=== PATIENT | female | born 1985 | race Caucasian/White ===

== ENCOUNTER 2020-05-31 14:38 | Emergency (ER) | payer OTHER, BC ==
[2020-05-31] MEDS ORDERED: Ondansetron 4 MG/2 ML SDV IVPUSH ONE (14:41)
[2020-05-31] MEDS ORDERED: Morphine 4 MG/ML Syringe IVPUSH ONE (14:41)
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
[2020-05-31] MEDS ORDERED: HYDROmorphone 1 MG/ML Syringe IVPUSH ONE (15:25)
--- NOTE | 2020-05-31 15:38 | CR ---
Indication: Pain Technique: AP and lateral views of a lower extremity osseous structure were submitted. These are submitted as right tibia and fibula, however several images are labeled as left knee due to technologist error. Comparison: None Findings: There is a comminuted fracture of the proximal tibia with extension to the tibial plateau is bilaterally. The distal femur is grossly intact. There is associated soft tissue swelling. There is partial visualization of internal fixation ming within the distal fibula. Impression: Images presented as right tibia and fibula demonstrate a comminuted fracture of the proximal tibia with involvement of the bilateral tibial plateaus. Dictated by Darron Miranda MD @ May 31 2020 3:30PM Signed by Dr. Darron Miranda @ May 31 2020 3:37PM
[2020-05-31] MEDS ORDERED: fentaNYL 100 MCG/2 ML SDV ONE (15:42)
[2020-05-31] MEDS ORDERED: fentaNYL 50 MCG/ML SDV IVPUSH ONE (15:42)
--- NOTE | 2020-05-31 16:18 | CR ---
Indication: Fracture Technique: AP and lateral views Comparison: Two views right tibia and fibula 05/31/2020 Findings: There is comminuted fracture of the proximal tibia with extension to the bilateral medial greater than lateral tibial plateaus. There is approximately 7 millimeters of impaction of the medial tibial plateau. There is associated soft tissue swelling. Impression: Comminuted fracture of the tibial plateau medial greater than lateral is appreciated with likely 7 millimeters of impaction of the medial aspect of the medial plateau. Dictated by Darron Miranda MD @ May 31 2020 4:14PM Signed by Dr. Darron Miranda @ May 31 2020 4:16PM
--- NOTE | 2020-05-31 16:31 | CT ---
HISTORY: Right knee pain. TECHNIQUE: CT right knee without contrast. COMPARISON: Radiographs same day. FINDINGS: Acute comminuted fracture of the proximal tibia extending from the proximal articular surfaces into the proximal shaft. Fracture involves the medial and lateral tibial plateaus and the tibial eminence. Medial tibial plateau articular surface is mildly comminuted. Posterior medial tibial plateau fragment is depressed 4-5 mm and is displaced in 6 mm laterally relative to the anterior aspect of the medial tibial plateau (axial series 201, image 407). Posterior aspect of the lateral tibial plateau articular surface is comminuted with multiple small fragments. Small lateral tibial plateau fragments are mildly depressed and displaced. Defect in the posterior lateral tibial plateau articular surface measures up to 18 mm wide (axial series 201, image 398). Majority of the lateral tibial plateau articular surface is intact. Tibial eminence is comminuted. Anterior tibial eminence fragment is displaced 5-6 mm superiorly. Posterior cortex of the proximal tibial metaphyseal region is comminuted with several mildly displaced and rotated fragments. Multi-directional fracture extension through the tibial tubercle. Thin mildly displaced acute avulsion fracture fragments from the outer rim of the lateral tibial plateau. No femur, patella, or proximal fibula fracture. Proximal tibiofibular joint is maintained. No significant arthrosis of the knee. Moderate size knee joint lipohemarthrosis. Scattered foci of intra-articular gas. Muscle mass is maintained. No popliteal cyst. IMPRESSION: 1. Acute comminuted fracture of the proximal tibia involving the medial and lateral tibial plateaus and tibial eminence with mild displacement and depression of major fracture fragments. 2. Knee joint lipohemarthrosis. Please note that all CT scans at this facility use dose modulation, iterative reconstruction, and/or weight-based dosing when appropriate to reduce radiation dose to as low as reasonably achievable. Dictated by Mehul Cook MD @ May 31 2020 4:36PM Signed by Dr. Mehul Cook @ May 31 2020 4:48PM
[2020-05-31] MEDS ORDERED: Acetaminophen/oxyCODONE 325-5 MG Tab PO ONE (16:44)
== END 2020-05-31 17:26 | disposition home or self-care (01) ==
LOC: MW.ED 14:38
DX: S82.141A Displaced bicondylar fracture of right tibia, initial encounter for closed fracture (principal); V28.4XXA Motorcycle driver injured in noncollision transport accident in traffic accident, initial encounter
CPT/HCPCS: 73560; 73590; 73700; 96374; 96375; 99284; A9270; J1170; J2270; J2405; J3010; 99283

== ENCOUNTER 2023-10-12 10:33 | Day surgery (SDC) | payer BC ==
[~2023-10-12 10:33] MED LIST: Albuterol 0.083% 2.5 MG/3 ML Neb Soln NEB PRN; HYDROmorphone 1 MG/ML Syringe IVPUSH PRN; Metoclopramide 10 MG/2 ML SDV IVPUSH PRN; Morphine 2 MG/ML SYRINGE IVPUSH PRN; Naloxone 0.4 MG/ML SDV IVPUSH PRN; Ondansetron 4 MG/2 ML SDV IVPUSH PRN; droPERidol 5 MG/2 ML SDV IVPUSH PRN; fentaNYL 50 MCG/ML SDV IVPUSH PRN
[2023-10-12] MEDS ORDERED: Ropivacaine 0.5% 5 MG/ML 30 ML SDV ONE (11:41)
[2023-10-12] MEDS: Lactated Ringers 1,000 ML IV SCH (11:42)
[2023-10-12] MEDS ORDERED: Lidocaine 2% 5 ML SDV ONE (11:46)
[2023-10-12] MEDS ORDERED: fentaNYL 100 MCG/2 ML SDV ONE (11:46)
[2023-10-12] MEDS ORDERED: Ketorolac 30 MG/ML SDV ONE (11:46)
[2023-10-12] MEDS ORDERED: Dexamethasone 4 MG/ML 5 ML MDV ONE (11:46)
[2023-10-12] MEDS ORDERED: Ondansetron 4 MG/2 ML SDV ONE (11:46)
[2023-10-12] MEDS ORDERED: Propofol 200 MG/20 ML SDV ONE (11:46)
[2023-10-12] MEDS ORDERED: Rocuronium Bromide 50 MG/5 ML Syringe ONE (11:46)
[2023-10-12] MEDS ORDERED: Sugammadex Sodium 200 MG/2 ML VIAL IV ONE (11:46)
[2023-10-12] MEDS ORDERED: ceFAZolin 2 GM in Sodium Chloride 0.9% 50 ML IV ONE (12:00)
[2023-10-12] MEDS ORDERED: Phenylephrine HCl 0.5 MG/5 ML AMP ONE (12:19)
[2023-10-12] MEDS ORDERED: ceFAZolin 2 GM Vial ONE (12:22)
[2023-10-12] MEDS ORDERED: Phenylephrine 1% 10 MG/ML SDV ONE (13:03)
[2023-10-12] MEDS ORDERED: Morphine 10 MG/ML SDV ONE (14:32)
== END 2023-10-12 15:55 | disposition home or self-care (01) ==
LOC: MW.SDS 10:33
PROVIDERS: ATTEND Orthopaedic Surgery
DX: S43.015D Anterior dislocation of left humerus, subsequent encounter (principal); S42.292A Other displaced fracture of upper end of left humerus, initial encounter for closed fracture; X58.XXXA Exposure to other specified factors, initial encounter; S82.143A Displaced bicondylar fracture of unspecified tibia, initial encounter for closed fracture; Z79.899 Other long term (current) drug therapy
CPT/HCPCS: 23616; 81025; J0690; J1100; J1885; J2270; J2371; J2405; J2704; J2795; J3010; J7120; 01630; 64415; C1713; J3490

== ENCOUNTER 2024-06-24 11:46 | Emergency (ER) | payer SELFPAY ==
[2024-06-24] MEDS ORDERED: Tranexamic Acid in NACL,ISO-OS 1,000 MG/100 ML Bag IV ONE (12:21)
[2024-06-24] MEDS ORDERED: Naloxone 0.4 MG/ML SDV IVPUSH PRN (12:22)
[2024-06-24 12:23] LABS: BASOPHILS ABSOLUTE AUTO 0.03 K/uL (0.00-0.20); BASOPHILS PERCENT AUTO 0.4 % (0.0-1.0); EOSINOPHILS ABSOLUTE AUTO 0.07 K/uL (0.00-0.45); EOSINOPHILS PERCENT AUTO 0.9 % (0.0-6.0); HEMATOCRIT 32.6 % (37.0-47.0); IMMATURE GRAN ABSOLUTE AUTO 0.01 K/uL (0.00-0.05); IMMATURE GRAN PERCENT AUTO 0.1 % (0.0-0.4); LYMPHOCYTES ABSOLUTE AUTO 2.06 K/uL (1.00-4.80); LYMPHOCYTES PERCENT AUTO 25.6 % (24.0-44.0); MEAN CORPUSCULAR HEMOGLOBIN 31.6 pg (28.0-32.0); MEAN CORPUSCULAR HGB CONC 33.7 g/dL (32.0-36.0); MEAN CORPUSCULAR VOLUME 93.7 fL (83.0-99.0); MEAN PLATELET VOLUME 9.4 fL (9.4-12.3); MONOCYTES ABSOLUTE AUTO 0.61 K/uL (0.00-0.80); MONOCYTES PERCENT AUTO 7.6 % (0.0-8.0); NEUTROPHILS ABSOLUTE AUTO 5.27 K/uL (1.80-7.70); NEUTROPHILS PERCENT AUTO 65.4 % (41.0-71.0); PLATELET COUNT,PLT 388 K/uL (150-400); RED BLOOD CELL COUNT 3.48 M/uL (4.10-5.30); WHITE BLOOD CELL COUNT,WBC 8.05 K/uL (3.9-11.3)
[2024-06-24 12:31] LABS: INR 1.1 (0.86-1.11); PTT,PARTIAL THROMBOPLSTIN TIME 29.3 SEC (23.9-30.7)
[2024-06-24] MEDS: Sodium Chloride 0.9% 1,000 ML IV ONE (12:34)
[2024-06-24] MEDS: Morphine 4 MG/ML Syringe IVPUSH ONE (12:34)
[2024-06-24] MEDS: Tranexamic Acid in NACL,ISO-OS 1,000 MG in Premix Bag 1 BAG IV ONE (12:44)
[2024-06-24 12:51] LABS: A/G RATIO 0.9 (0.9-1.6); ALBUMIN 3.5 g/dL (3.4-5.0); BILIRUBIN TOTAL 0.7 mg/dL (0.2-1.0); CALCIUM 8.9 mg/dL (8.5-10.1); CARBON DIOXIDE,CO2 27.3 mmol/L (21.0-32.0); CREATININE 0.9 mg/dL (0.6-1.0); EST CRCL DRUG DOSING (CG) 84.66 mL/min; PROTEIN TOTAL,TP 7.2 g/dL (6.4-8.2); TSH ULTRASENSITIVE 1.27 uIU/mL (0.36-3.74)
[2024-06-24 13:06] LABS: CANDIDA DNA PROBE NEGATIVE (NEGATIVE); GARDNERELLA DNA PROBE NEGATIVE (NEGATIVE); TRICHOMONAS DNA PROBE NEGATIVE (NEGATIVE)
[2024-06-24 13:45] LABS: C. TRACHOMATIS BY PCR NOT DETECTED; N. GONORRHOEAE BY PCR NOT DETECTED
[2024-06-24 14:00] LABS: AMPHETAMINES SCREEN, URINE NEGATIVE (CUTOFF=500); BARBITURATE SCREEN,URINE NEGATIVE (CUTOFF=200); BENZODIAZEPINES SCREEN,URINE NEGATIVE (CUTOFF=150); BUPRENORPHINE SCREEN,URINE NEGATIVE (CUTOFF=10); METHADONE SCREEN, URINE NEGATIVE (CUTOFF=200); METHAMPHETAMINES SCREEN, URINE NEGATIVE (CUTOFF=500); OXYCODONE SCREEN,URINE NEGATIVE (CUT0FF=100); PCP SCREEN,URINE NEGATIVE (CUTOFF=25); THC SCREEN,URINE 20 NG/ML PRESUMPTIVE POSITIVE (CUTOFF=50)
[2024-06-24 14:17] LABS: GLUCOSE,URINE NEGATIVE (NEGATIVE); KETONES,URINE 40 mg/dL (NEGATIVE); LEUKOCYTE ESTERASE,URINE NEGATIVE (NEGATIVE); NITRITE,URINE NEGATIVE (NEGATIVE); OCCULT BLOOD,URINE LARGE (NEGATIVE); PH,URINE 5.5 (5.0-8.0); PROTEIN,URINE NEGATIVE (NEGATIVE); UROBILINOGEN,URINE 0.2 EU/dL (<2.0)
[2024-06-24 14:21] LABS: APPEARANCE,URINE CLOUDY; BILIRUBIN,URINE SMALL (NEGATIVE); COLOR,URINE DARK YELLOW
[2024-06-24 14:22] LABS: BACTERIA,URINE FEW (NEGATIVE); EPITHELIAL CELLS,URINE FEW (NONE-FEW); RBC,URINE TOO NUMEROUS TO CT (0-2/HPF); WBC,URINE 0-5 (0-5/HPF)
== END 2024-06-24 14:38 | disposition home or self-care (01) ==
LOC: MW.ED 11:46
DX: N93.9 Abnormal uterine and vaginal bleeding, unspecified (principal); D64.9 Anemia, unspecified; Z90.49 Acquired absence of other specified parts of digestive tract
CPT/HCPCS: 36415; 76856; 80053; 80305; 81001; 84443; 84703; 85025; 85610; 85730; 86850; 86900; 86901; 87480; 87491; 87510; 87591; 87660; 96361; 96365; 96375; 99284; J2270; J7030; J3490